=== PATIENT | male | born 1950 | race Caucasian/White ===

== ENCOUNTER 2023-10-25 11:37 | Observation (INO) | payer OTHER ==
[~2023-10-25] VITALS: Ht 175.3 cm; Wt 100.0 kg
[2023-10-25] VITALS (22 sets, daily range): BP systolic 101–172; BP diastolic 58–89
[2023-10-25] MEDS ORDERED: GABA300 PO (11:52)
[2023-10-25 12:00] LABS: BASOPHILS ABSOLUTE AUTO 0.09 K/mm3 (0.00-0.23); BASOPHILS PERCENT AUTO 1 % (0-2); EOSINOPHILS ABSOLUTE AUTO 0.31 K/mm3 (0.00-0.68); EOSINOPHILS PERCENT AUTO 5 % (0-6); Hemoglobin 11.6 g/dL (13.5-17.5); IMMATURE GRAN ABSOLUTE AUTO 0.03 K/mm3 (0.00-0.10); IMMATURE GRAN PERCENT AUTO 0 % (0-1); LYMPHOCYTES ABSOLUTE AUTO 1.54 K/mm3 (0.84-5.20); LYMPHOCYTES PERCENT AUTO 23 % (21-46); MONOCYTES ABSOLUTE AUTO 0.82 K/mm3 (0.16-1.47); MONOCYTES PERCENT AUTO 12 % (4-13); Mean Corpuscular HGB 25.9 pg (26.0-34.0); Mean Corpuscular HGB Conc 32.2 g/dL (31.5-36.5); Mean Corpuscular Volume 80 fL (80-100); Mean Platelet Volume 9.3 fL (9.1-12.4); NEUTROPHILS ABSOLUTE AUTO 3.94 K/mm3 (1.96-9.15); NEUTROPHILS PERCENT AUTO 59 % (41-73); Platelet Count 246 K/mm3 (150-400); RDW Coefficient Variation 14.5 % (11.7-14.2); RDW Standard Deviation 42.4 fL (35.1-46.3); Red Blood Cell Count 4.48 M/mm3 (4.30-5.90); White Blood Cell Count 6.73 K/mm3 (4.00-11.30)
[2023-10-25 12:23] LABS: Albumin, Blood 3.4 g/dL (3.4-5.0); Bilirubin, Total 0.4 mg/dL (0.1-1.0); Creatinine, Blood 1.09 mg/dL (0.60-1.20); Globulin, Blood 3.4 g/dL (2.2-4.0); Potassium, Blood 4.2 mmol/L (3.5-5.5); Total Protein, Blood 6.8 g/dL (6.4-8.2)
[2023-10-25] MEDS ORDERED: Pantoprazole Sodium 40 MG Injection IV ONE (13:30)
[2023-10-25] MEDS ORDERED: Ondansetron HCl 2 MG / ML 2ML Vial IV PRN (16:00)
[2023-10-25] MEDS ORDERED: NS 1,000 ML IV SCH (16:00)
[2023-10-25] MEDS ORDERED: NS 1,000 ML IV ONE (16:01)
[2023-10-25] MEDS ORDERED: Lactated Ringer's 1,000 ML IV SCH (17:45)
[2023-10-25] MEDS ORDERED: propofoL 40 ML IV ONE (18:23)
[2023-10-25] MEDS ORDERED: FentaNYL Citrate 50 MCG/ML 2 ML Injection IV PRN (18:45)
--- NOTE | 2023-10-25 18:48 | NUR ---
10/25/23 1848 Melvi Rose HISTORY, CHART, MEDICATIONS AND ALLERGIES REVIEWED BEFORE START OF PROCEDURE. PATIENT CONFIRMS NPO STATUS AND AGREES WITH SCHEDULED PROCEDURE. 3-LEAD EKG REVIEWED WITH PHYSICIAN PRIOR TO START OF PROCEDURE. MONITOR INTACT WITH CONTINUOUS PULSE OXIMETRY,CAPNOGRAPHY, 3-LEAD EKG, INTERMITTENT BP. SUPPLEMENTAL O2 TO BE TITRATED THROUGHOUT PROCEDURE TO MAINTAIN O2 SATURATION ABOVE 90%. PATIENT DETERMINED TO BE ASA APPROPRIATE FOR PROPOFOL SEDATION PRIOR TO START OF PROCEDURE BY DR. JENKINS.
[2023-10-25] MEDS ORDERED: Gabapentin 300 MG Cap PO PRN (18:50)
[2023-10-25] MEDS ORDERED: Pantoprazole Sodium 40 MG Injection IV SCH (19:00)
--- NOTE | 2023-10-25 19:34 | NUR ---
History, Chart, Medications and Allergies reviewed before start of procedure. Patient up to Ambulate independently. Gait steady. Pre-Op teaching done. Pt verbalizes understanding. Patient confirms NPO status and agrees with scheduled surgery. Lungs clear T/O to Auscultation.
[2023-10-25] MEDS ORDERED: MULVITA PO (20:05)
[2023-10-25] MEDS ORDERED: IBUP400 PO (20:05)
[2023-10-25 20:12] LABS: Hematocrit 31.3 % (37.0-53.0); Hemoglobin 9.9 g/dL (13.5-17.5)
--- NOTE | 2023-10-26 01:15 | NUR ---
10/25/232014 PT ARRIVED TO ROOM FROM ER IN STABLE CONDITION. DENIES ANY DISCOMFORT AT THIS TIME. NO APPARENT SIGNS OF DISTRESS. CALL LIGHT IS IN REACH. IS IN ROOM.
--- NOTE | 2023-10-26 01:17 | NUR ---
10/25/23 2200 PT LYING IN BED, AWAKE, IN ROOM. NO APPARENT SIGNS OF DISTRESS. CALL LIGHT IN REACH.
--- NOTE | 2023-10-26 01:19 | NUR ---
10/25/23 2330 PT LYING IN BED, EYES CLOSED, WAKES EASILY TO VERBAL STIMULI. NO APPARENT SIGNS OF DISTRESS. DENIES NEED FOR ANYTHING AT THIS TIME. IN ROOM. CALL LIGHT IS IN REACH.
--- NOTE | 2023-10-26 02:41 | NUR ---
PT LYING IN BED, EYES CLOSED, APPEARS TO BE RESTING. BREATHING IS EVEN, UNLABORED. NO APPARENT SIGNS OF DISTRESS. CALL LIGHT IS IN REACH. IS IN ROOM.
[2023-10-26 03:08] VITALS: BP 103/68
--- NOTE | 2023-10-26 04:54 | NUR ---
PT IS AAO X 4, ON RA. DENIED ANY DISCOMFORT FOR THIS SHIFT.
[2023-10-26 05:29] LABS: Hematocrit 33.7 % (37.0-53.0); Hemoglobin 10.6 g/dL (13.5-17.5); Mean Corpuscular HGB Conc 31.5 g/dL (31.5-36.5); Mean Corpuscular Volume 83 fL (80-100); Mean Platelet Volume 9.3 fL (9.1-12.4); Platelet Count 195 K/mm3 (150-400); RDW Coefficient Variation 14.3 % (11.7-14.2); RDW Standard Deviation 43.2 fL (35.1-46.3); Red Blood Cell Count 4.08 M/mm3 (4.30-5.90)
[2023-10-26 06:03] LABS: Bun/Creatinine Ratio 18.4 (12.0-20.0); Calcium, Blood 8.4 mg/dL (8.5-10.1); Creatinine, Blood 1.03 mg/dL (0.60-1.20); Potassium, Blood 4.5 mmol/L (3.5-5.5)
--- NOTE | 2023-10-26 06:08 | NUR ---
PT LYING IN BED, EYES CLOSED, APPEARS TO BE RESTING. BREATHING IS EVEN, UNLABORED. NO APPARENT SIGNS OF DISTRESS. CALL LIGHT IS IN REACH. NO OTHER CHANGES THIS SHIFT.
[2023-10-26 07:00] VITALS: BP 121/67
[2023-10-26] MEDS ORDERED: PANT40 PO (10:16)
--- NOTE | 2023-10-26 10:44 | NUR ---
DISCHARGE NOTE PT DISCHARGED TO HOME, WITH HIS AND WILL DRIVE HOME TOGETHER. [facility] [place], PT IS FROM [place]. DISCHARGE INFROMATION AND EDUCATION REVIEWED WITH THE PT. IV REMOVED PRIOR TO DISCHARGE.
--- NOTE | 2023-10-26 12:10 | NUR ---
NOTE: UNABLE TO COMPLETE SHIFT ASSESSMENT PRIOR TO DC, CLINICAL COORDINATOR AWARE. NO ACUTE CHANGES PRIOR TO DISCHARGE.
== END 2023-10-26 10:35 | disposition home or self-care (01) ==
LOC: ER 11:37 → MEDS 11:38 → ENPENDDIS 10-26 10:20 → MEDS 10-26 10:35
PROVIDERS: Emergency Medicine; ADMIT Internal Medicine
DX: K29.51 Unspecified chronic gastritis with bleeding (principal); R73.03 Prediabetes; G89.29 Other chronic pain; K80.20 Calculus of gallbladder without cholecystitis without obstruction; E78.5 Hyperlipidemia, unspecified; M19.90 Unspecified osteoarthritis, unspecified site; Z90.49 Acquired absence of other specified parts of digestive tract; Z86.010 Personal history of colon polyps; Z79.899 Other long term (current) drug therapy
CPT/HCPCS: 36415; 74177; 80048; 80053; 82947; 85014; 85018; 85025; 85027; 86850; 86900; 86901; 88305; 88342; 96361; 96374; 96375; 96376; 99285-25; A9270; G0378; J2405; J2470; J2704; J7030; J7120; Q9967